=== PATIENT | male | born 1985 | race Caucasian/White ===

== ENCOUNTER 2023-02-06 07:25 | Emergency (ER) | payer OTHER ==
[2023-02-06 08:27] LABS: #Monocytes 0.4 10x3/uL (0.0-1.1); #Neutrophils 8.2 10x3/uL (1.5-8.4); %Basophils 0.2 % (0.0-2.0); %Lymphocytes 5.6 % (18.0-47.0); %Monocytes 4.4 % (0.0-10.0); %Neutrophils 89.3 % (40.0-75.0); Hematocrit 45.1 % (38.8-50.0); Hemoglobin 15.9 g/dL (13.5-17.5); Mean Corpuscular HGB CONC 35.3 g/dL (32.0-36.0); Mean Corpuscular Hemoglobin 30.5 pg (27.0-33.0); Mean Corpuscular Volume 86.4 fl (81.2-95.1); Mean Platelet Volume 10.1 fl (7.4-10.4); Platelet Count 217 10x3/uL (150-450); RBC Distribution Width 12.5 % (11.5-14.5); Red Blood Cell (RBC) Count 5.22 10x6/uL (4.32-5.72); White Blood Cell (WBC) Count 9.2 10x3/uL (3.5-10.5)
[2023-02-06] MEDS ORDERED: Ondansetron PF 4 MG/2 ML Vial ONE (08:28)
[2023-02-06] MEDS ORDERED: Ketorolac Tromethamine 30 MG/ML VIAL ONE (08:28)
[2023-02-06 08:40] LABS: ALT (SGPT) 39 U/L (8-55); AST (SGOT) 26 U/L (5-34); Albumin 3.9 g/dL (3.5-5.0); Alkaline Phosphatase 61 U/L (40-110); Anion Gap 15 mmol/L (10-20); BUN (Urea Nitrogen) 12 mg/dL (8.9-20.6); Bilirubin, Total 0.9 mg/dL (0.2-1.2); CK (CPK) 114 U/L (30-200); Calc. Creatinine Clearance 0 mL/min (70-130); Calcium 8.7 mg/dL (7.8-10.44); Carbon Dioxide 21 mmol/L (22-29); Chloride 102 mmol/L (98-107); Estimated GFR 76; Globulin 2.7 g/dL (2.4-3.5); Glucose 140 mg/dL (70-105); Potassium 3.9 mmol/L (3.5-5.1); Protein, Total 6.6 g/dL (6.0-8.3); Sodium 134 mmol/L (136-145); Troponin I 0.014 ng/mL (< 0.028)
[2023-02-06 09:27] LABS: Bilirubin Neg (Negative); Blood, Urine 50 (Negative); Glucose, Urine (Dipstick) Normal (Negative); Ketone, Urine 50 mg/dL (Negative); Leukocyte 100 (Negative); Nitrite Positive (Negative); Protein, Urine (Dipstick) 30 mg/dl (Neg-Trace); Specific Gravity, Urine 1.015 (1.005-1.030); Urobilinogen Normal mg/dL (Less than 2)
[2023-02-06 09:39] LABS: Clarity Cloudy (Clear)
[2023-02-06 09:40] LABS: Bacteria/HPF 4+ HPF (None Seen); CAUTI Indications for Culture Pelvic or flank pain; RBC/HPF 0-3 HPF (0-3); Squamous Epithelial 0-3 HPF (0-3); WBC/HPF Greater Than 50 HPF (0-3)
[2023-02-06 09:41] LABS: Urine Culture Reflex Yes Yes
[2023-02-06] MEDS ORDERED: diphenhydrAMINE 50 MG/ML VIAL ONE (09:51)
[2023-02-06] MEDS ORDERED: Metoclopramide HCl 10 MG/2 ML VIAL ONE (09:52)
[2023-02-06] MEDS ORDERED: cefTRIAXone (ROCEPHIN) 2 GM VIAL ONE (09:52)
[2023-02-06] MEDS ORDERED: Morphine 4 MG/ML VIAL ONE (10:35)
== END 2023-02-06 12:05 | disposition home or self-care (01) ==
LOC: CSHERS 07:25
DX: N10 Acute pyelonephritis (principal)
CPT/HCPCS: 71045; 80053; 81001; 82550; 83605; 84484; 85025; 87077; 87086; 87186; 87804; 93005; 96365; 96375; J0696; J1200; J1885; J2270; J2405; J2765